=== PATIENT | male | born 1970 | race Two or more races ===

== ENCOUNTER 2024-08-17 01:09 | Emergency (ER) | payer MEDICAID, OTHER ==
[~2024-08-17] VITALS: Ht 185.4 cm; Wt 80.8 kg
[2024-08-17 01:26] LABS: Hematocrit 43.9 % (41.0-53.0); Hemoglobin 15.4 g/dL (13.5-17.5); Mean Corpuscular Hemoglobin 31.6 pg (28.0-32.0); Mean Corpuscular Volume 90.1 fL (80.0-100.0); Nucleated Red Blood Cells % 0.1 %
[2024-08-17 01:38] LABS: Chloride 107 mmol/L (98-107); Potassium 4.2 mmol/L (3.5-5.1); Sodium 141 mmol/L (136-145)
[2024-08-17 01:39] LABS: Anion Gap 10 (5-15); Carbon Dioxide 24 mmol/L (20-31)
[2024-08-17 01:40] LABS: Calcium 9.5 mg/dL (8.7-10.4)
[2024-08-17 01:44] LABS: BUN/Creatinine Ratio 25.2 (10.0-20.0)
[2024-08-17 01:47] LABS: Blood Urea Nitrogen 29 mg/dL (9-23); Glucose 117 mg/dL (74-106)
--- NOTE | 2024-08-17 01:59 | DVH ---
CHEST RADIOGRAPH Indication: CP Technique: Single frontal view of the chest was obtained COMPARISON: None FINDINGS: Lines and Tubes: None Lungs: Clear Pleura: No effusion. No pneumothorax. Cardiomediastinal contours: Unremarkable Bones: Unremarkable IMPRESSION: 1. No acute disease.
--- NOTE | 2024-08-17 02:12 | ED.PDOC ---
History of Present Illness HPI Comments 54 y/o M presents with 1x hour history of substernal chest pain. Patient endorses on sudden and unprovoked onset of pain, while taking a shower, this morning. Pain is pressure-like in quality and a 5/10 in severity and radiates, diffusely, across his entire chest wall. No significant medical history, with ex ception of isolated incident of being found hypertensive, recently, during his last PCP appointment. He reports no HTN medication placement. Denies any shortness of breath, palpitations, nausea, vomiting, or further associated symptoms. Chief Complaint: Chest Pain Time Seen by MD: 01:00 Reviewed Notes: Nurses Notes, Medications, Allergies Information Source: Patient Mode of Arrival: EMS Severity: Moderate Timing: Hours Duration: Since onset Prehospital treatment: None Past Medical History PAST MEDICAL HISTORY: Denies Surgical History: Denies all surgeries Social History Smoker: Non-Smoker Alcohol: Denies ETOH Use Drugs: Denies Drug Use Lives In: Home All Other Systems: Reviewed and Negative (Comprehensive systems review obtained and negative except for what is stated in the HPI.) Physical Exam General Appearance: No Apparent Distress, Normal HEENT: Normal ENT Inspection, Pharynx Normal, TMs Normal Neck: Full Range of Motion, Non-Tender, Normal, Normal Inspection Respiratory: Lungs Clear, No Accessory Muscle Use, No Respiratory Distress, Normal Breath Sounds Cardiovascular: No Edema, No JVD, No Murmur, No Gallop, Normal Peripheral Pulses, Regular Rate/Rhythm Breast Exam: Deferred Gastrointestinal: No Organomegaly, Non Tender, No Pulsatile Mass, Normal Bowel Sounds, Soft Genitalia: Deferred Pelvic: Deferred Rectal: Deferred Extremities: No calf tenderness, Normal capillary refill, Normal inspection, Normal range of motion, Non-tender, No pedal edema Musculoskeletal : Extremity Location: Chest Apperance: Normal, Tenderness (reproducible with palpation ) Neurologic: Alert, rubber heel and sole press tender II-XII nml as Tested, No Motor Deficits, Normal Affect, Normal Mood, No Sensory Deficits Cerebellar Function: Normal Reflexes: Normal Skin: Dry, Normal Color, Warm Lymphatic: No Adenopathy Was a procedure done? Was a procedure done?: No EKG EKG : Pulse Rate (adult): 89 [place]: Normal Cardiac Rhythm: NSR Block: None Hypertrophy: None ST: Normal Differential Dx Considerations may include: NC, PE, ACS, URI, PNA, anxiety, angina, costochondritis, pericarditis, gastritis, among others X-Ray, Labs, Meds, VS Vital Signs Date Time Temp Pulse Resp B/P (MAP) Pulse Ox O2 Delivery O2 Flow Rate FiO2 08/17/24 02:12 89 08/17/24 02:08 71 08/17/24 01:10 89 08/17/24 01:09 98.7 91 18 160/102 (121) 96 98.7 Lab Test 08/17/24 02:11 08/17/24 01:11 Range/Units Troponin I High Sensitivity 3 L 3 L </=54 ng/L White Blood Count 8.4 4.4-10.8 10^3/uL Red Blood Count 4.87 4.5-5.90 10^6/uL Hemoglobin 15.4 13.5-17.5 g/dL Hematocrit 43.9 41.0-53.0 % Mean Corpuscular Volume 90.1 80.0-100.0 fL Mean Corpuscular Hemoglobin 31.6 28.0-32.0 pg Mean Corpuscular Hemoglobin Concent 35.0 32.0-36.0 g/dL Red Cell Distribution Width 13.6 11.8-14.3 % Platelet Count 252 140-450 10^3/uL Mean Platelet Volume 7.1 6.9-10.8 fL Neutrophils (%) (Auto) 63.1 37.0-80.0 % Lymphocytes (%) (Auto) 26.4 10.0-50.0 % Monocytes (%) (Auto) 9.3 0.0-12.0 % Eosinophils (%) (Auto) 0.7 0.0-7.0 % Basophils (%) (Auto) 0.5 0.0-2.0 % Neutrophils # (Auto) 5.3 1.6-8.6 10 ^3/uL Lymphocytes # (Auto) 2.2 0.4-5.4 10 ^3/uL Monocytes # (Auto) 0.8 0-1.3 10 ^3/uL Eosinophils # (Auto) 0.1 0-0.8 10 ^3/uL Basophils # (Auto) 0 0-0.2 10 ^3/uL Nucleated Red Blood Cells 0.1 % Sodium Level 141 136-145 mmol/L Potassium Level 4.2 3.5-5.1 mmol/L Chloride Level 107 98-107 mmol/L Carbon Dioxide Level 24 20-31 mmol/L Anion Gap 10 5-15 Blood Urea Nitrogen 29 H 9-23 mg/dL Creatinine 1.15 0.700-1.30 mg/dL Glomerular Filtration Rate Calc 75 >90 mL/min BUN/Creatinine Ratio 25.2 H 10.0-20.0 Serum Glucose 117 H 74-106 mg/dL Calcium Level 9.5 8.7-10.4 mg/dL [place] [address] Ph: [phone] DIAGNOSTIC IMAGING Diagnostic Imaging Report : [id number] Signed PATIENT: TAWANNA ROMERO ACCT: [id number] UNIT: [id number] : 1970 LOC: ER ROOM / BED: / AGE / SEX: 54 / M ADM STATUS: REG ER SERVICE 9 ORDERING PHYSICIAN: YUMIKO DOMÍNGUEZ MD PROCEDURE(s): CXRP - CHEST PORTABLE REASON: CP ORDER NUMBER(s): [id number], ACCESSION NUMBER(s): [id number] CHEST RADIOGRAPH Indication: CP Technique: Single frontal view of the chest was obtained COMPARISON: None FINDINGS: Lines and Tubes: None Lungs: Clear Pleura: No effusion. No pneumothorax. Cardiomediastinal contours: Unremarkable Bones: Unremarkable IMPRESSION: 1. No acute disease. ATED BY: ANTON AMOS MD DICTATED DATE/TIME: 08/17/24156 SIGNED BY: ANTON AMOS MD SIGNED DATE/TIME: 08/17/24156 CC: X-Ray, Labs, Meds, VS Comment Imaging: X-rays and CT scans were reviewed and interpreted by this provider, imaging shows no fractures and no pathological disease. Pending radiology review. Laboratory: Labs reviewed and interpreted by this provider. No significant abnormalities noted. Patient has prior medical visits reviewed. Med reconciliation performed Vital signs reviewed Time of 1ST Reevaluation: 01:30 Reevaluation 1ST: Unchanged Patient Education/Counseling: Diagnosis, Treatment Family Education/Counseling: No Family Present Additional Information Previous visits reviewed: N/A The following tests were ordered, and results were reviewed by me: BMP, CBC, CXR, EKG, troponin Additional Information was gathered from interviewing the following independent historians: N/A I reviewed and agreed with the following test results read by other providers: CXR I discussed treatment and results with medical personnel and: patient SEPSIS Sepsis Screen Date sepsis recognized/suspect: Aug 17, 2024 Time Sepsis recognized/suspect: 010 Recent Procedure: No On Antibiotic Therapy: No Respiratory Rate >20: No Heart Rate >90: No Temp<36 C (96.8 F) or >38.3 C: No SBP <90 or MAP <65 mmHG: No New Acute Mental Status Change: No Is the patient on CPAP, BIPAP,: No Physician Orders Chest Portable (08/17/24 01:20) Electrocardigram (08/17/24 01:11) Troponin-I Hs (08/17/24 04:11) Electrocardigram (08/17/24 02:11) Electrocardigram (08/17/24 04:11) Vital Signs Date Time Temp Pulse Resp B/P (MAP) Pulse Ox O2 Delivery O2 Flow Rate FiO2 08/17/24 02:12 89 08/17/24 02:08 71 08/17/24 01:10 89 08/17/24 01:09 98.7 91 18 160/102 (121) 96 98.7 Laboratory Tests Test 08/17/24 01:11 White Blood Count 8.4 10^3/uL (4.4-10.8) Departure 1 Departure Time of Disposition: 03:10 Impression: Primary Impression: Musculoskeletal chest pain Additional Impression: Hypertension Qualified Codes: I10 - Essential (primary) hypertension Disposition: HOME / SELF CARE / HOMELESS Condition: Fair e-Prescriptions Amlodipine Besylate (Amlodipine Besylate) 5 Mg Tab 1 TAB PO DAILY, #30 TAB 5 Refills Prov: ÓSCAR LFORIAN Ray FUEL CELL REPAIRER 08/17/24 Discharged With: Self Critical Care Note Critical Care Time?: No Stability Stability form required: No Heart Score Heart Score: Heart Score Response (Comments) Value History Slightly Suspicious 0 EKG Normal 0 Age 45-64 1 Risk Factors No known risk factors 0 Troponin Normal limit 0 Total 1 I personally scribed for YUMIKO DOMÍNGUEZ MD ([email or web address]) on 08/17/24 at 02:12. Electronically submitted by Rafael Amaya [email or web address]). YUMIKO DOMÍNGUEZ MD Aug 17, 2024 02:12 ÓSCAR FLORIAN Aug 17, 2024 03:10
[2024-08-17] MEDS ORDERED: AMLO1TAB22 PO (03:10)
[2024-08-17 03:33] VITALS: BP 128/88; PULSE 66; RESP 20; TEMP 97.7; O2SAT 98
--- NOTE | 2024-08-17 04:38 | ECG ---
[facility] Test Date: 2024-08-17 Test Time: 02:08:32 Pat Name: TAWANNA ROMERO Department: ER Room: Gender: M Carpenter [employer]: MANDI : 1970 Requested By: YUMIKO DOMÍNGUEZ Order Number: [id number] Reading MD: Rodrigo Mckinley Measurements Intervals [place] Rate: 71 P: 32 TX: 153 QRS: 71 QRSD: 98 T: 50 QT: 391 QTc: 425 Interpretive Statements Sinus rhythm Lateral infarct, acute (LAD) ST elevation, consider inferior injury Baseline wander in lead(s) V4 Electronically Signed On 08-19-2024 9:52:39 PDT by Rodrigo Mckinley Please click the below link to view image of tracing.
--- NOTE | 2024-08-17 08:29 | ECG ---
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
== END 2024-08-17 04:10 | disposition home or self-care (01) ==
LOC: ER 01:09
DX: I10 Essential (primary) hypertension (principal); R07.2 Precordial pain
CPT/HCPCS: 36415; 71045; 80048; 84484; 85025; 93005